=== PATIENT | male | born 1985 | race Caucasian/White ===

== ENCOUNTER 2016-11-16 19:21 | Emergency (ER) | payer SELFPAY ==
[2016-11-16] MEDS ORDERED: Sodium Chloride 0.9% 10 ML Syringe FLUSH PRN (19:32)
[2016-11-16] MEDS ORDERED: Sodium Chloride 0.9% 2.5 ML Syringe FLUSH PRN (19:32)
--- NOTE | 2016-11-16 19:32 | EDM.PDOC ---
ED HPI GENERAL MEDICAL PROBLEM - General Chief Complaint: Chest Pain Stated Complaint: PT HAS CHEST PAINS Time Seen by Provider: 11/16/16 19:26 - History of Present Illness INITIAL COMMENTS - FREE TEXT/NARRATIVE: HISTORY AND PHYSICAL: History of present illness: Patient 31-year-old white male presents with concern of left-sided chest pain is vaguely described without associated shortness breath palpitations nausea vomiting or diaphoresis he denies any cardiac risk factors and states he's been in good health. Review of systems: As per history of present illness and below otherwise all systems reviewed and negative. Past medical history: As per history of present illness and as reviewed below otherwise noncontributory. Surgical history: As per history of present illness and as reviewed below otherwise noncontributory. Social history: No reported history of drug or alcohol abuse. Family history: As per history of present illness and as reviewed below otherwise noncontributory. Physical exam: HEENT: Atraumatic, normocephalic, pupils reactive, negative for conjunctival pallor or scleral icterus, mucous membranes moist, throat clear, neck supple, nontender, trachea midline. Lungs: Clear to auscultation, breath sounds equal bilaterally, chest nontender. Heart: S1S2, regular, negative for clicks, rubs, or JVD. Abdomen: Soft, nondistended, nontender. Negative for masses or hepatosplenomegaly. Negative for costovertebral tenderness. Pelvis: Stable nontender. Genitourinary: Deferred. Rectal: Deferred. Extremities: Atraumatic, negative for cords or calf pain. Neurovascular unremarkable. Neuro: Awake, alert, oriented. Cranial nerves II through XII unremarkable. Cerebellum unremarkable. Motor and sensory unremarkable throughout. Exam nonfocal. Diagnostics: CBC CMP troponin PT/INR chest x-ray EKG Therapeutics: IV O2 monitor Impression: #1 atypical chest pain Definitive disposition and diagnosis as appropriate pending reevaluation and review of above. ED ROS GENERAL - Review of Systems Review Of Systems: ROS reveals no pertinent complaints other than HPI. ED EXAM, GENERAL - Physical Exam Exam: See Below (See dictation) Departure - Departure Time of Disposition: 19:32 Disposition: Home, Self-Care 01 Condition: Good Clinical Impression: Atypical chest pain - Discharge Information Additional Instructions: The following information is given to patients seen in the emergency department who are being discharged to home. This information is to outline your options for follow-up care. We provide all patients seen in our emergency department with a follow-up referral. The need for follow-up, as well as the timing and circumstances, are variable depending upon the specifics of your emergency department visit. If you don't have a primary care physician on staff, we will provide you with a referral. We always advise you to contact your personal physician following an emergency department visit to inform them of the circumstance of the visit and for follow-up with them and/or the need for any referrals to a consulting specialist. The emergency department will also refer you to a specialist when appropriate. This referral assures that you have the opportunity for followup care with a specialist. All of these measure are taken in an effort to provide you with optimal care, which includes your followup. Under all circumstances we always encourage you to contact your private physician who remains a resource for coordinating your care. When calling for followup care, please make the office aware that this follow-up is from your recent emergency room visit. If for any reason you are refused follow-up, please contact the [facility] emergency department at and asked to speak to the emergency department charge nurse. [facility] [address] [place] [id number] Follow-up primary medical doctor and/or clinic above as discussed return as needed as discussed
[2016-11-16 20:14] LABS: CHLORIDE,CL 106 mmol/L (98-110); SODIUM,NA 139 mmol/L (136-146)
[2016-11-16 20:58] VITALS: BP 136/72
--- NOTE | 2016-11-17 15:58 | CR ---
EXAM DATE: 11/16/16 PATIENT'S AGE: 31 Patient: GARY KNAPP Facility: [place], [place] Site . Site : 1985 Study: XRay Chest [id number]/10/2017 7:55:35 PM Ordering Physician: Doctor Walker Final Report: INDICATION: PAIN/SOB LOWER EXTREMITY SWELLING X 1 WEEK INDICATION: Pain. Shortness of breath. TECHNIQUE: Chest 1 view. COMPARISON: None FINDINGS: Cardiovascular and mediastinum: Heart size and vasculature are normal in caliber and appearance. Mediastinum is within normal limits. Lungs and pleural space: Lungs are clear. No sign of infiltrate or mass. No sign of pleural effusion. No pneumothorax. Bones and soft tissues: No significant findings. IMPRESSION: Lungs are clear. Dictated by Marcell Nuñez MD @ 11/16/2016 8:18:32 PM Dictated by: Marcell Nuñez MD @ 11/16/2016 20:18:39 (Electronic Signature) Report Signed by Proxy. KORY
== END 2016-11-16 20:58 | disposition home or self-care (01) ==
LOC: MW.ED 19:21
DX: R07.89 Other chest pain (principal)
CPT/HCPCS: 36415; 71010; 71010-26; 80053; 84484; 85025; 93005; 99282; 99285-25

== ENCOUNTER 2017-09-26 09:04 | Emergency (ER) | payer SELFPAY ==
[2017-09-26 09:19] VITALS: BP 156/92
--- NOTE | 2017-09-26 09:36 | EDM.PDOC ---
ED HPI GENERAL MEDICAL PROBLEM - General Chief Complaint: Skin Complaint Stated Complaint: bumps on back on his neck Time Seen by Provider: 09/26/17 09:13 Source of Information: Reports: Patient History Limitations: Reports: No Limitations - History of Present Illness INITIAL COMMENTS - FREE TEXT/NARRATIVE: History of present illness: []Patient was stung by a bee yesterday and last night had sweats and noted a lump at the back of his neck. Review of systems: As per history of present illness and below otherwise all systems reviewed and negative. Past medical history: As per history of present illness and as reviewed below otherwise noncontributory. Surgical history: As per history of present illness and as reviewed below otherwise noncontributory. Social history: No reported history of drug or alcohol abuse. Family history: As per history of present illness and as reviewed below otherwise noncontributory. Physical exam: General: Well developed, well nourished in NAD HEENT: Atraumatic, normocephalic, pupils reactive, negative for conjunctival pallor or scleral icterus, mucous membranes moist, throat clear, neck supple, nontender, 1 cm x 1 cm mobile nontender soft nodule posterior left neck, there is an insect bite that physical without signs of infection trachea midline. Lungs: Clear to auscultation, breath sounds equal bilaterally, chest nontender. Heart: S1S2, regular, negative for clicks, rubs, or JVD. Abdomen: Soft, nondistended, nontender. Negative for masses or hepatosplenomegaly. Negative for costovertebral tenderness. Pelvis: Stable nontender. Genitourinary: Deferred. Rectal: Deferred. Extremities: Atraumatic, negative for cords or calf pain. Neurovascular unremarkable. Neuro: Awake, alert, oriented. Cranial nerves II through XII unremarkable. Cerebellum unremarkable. Motor and sensory unremarkable throughout. Exam nonfocal. Diagnostics: [] Therapeutics: [] Impression: []Lymphadenopathy Plan: []Follow-up with primary care as needed return if any fevers, worsening pain or other concerning symptoms occur. Definitive disposition and diagnosis as appropriate pending reevaluation and review of above. Throat Pain Score (Numeric/FACES): 2 - Related Data Allergies Allergy/AdvReac Type Severity Reaction Status Date / Time No Known Allergies Allergy Verified 09/26/17 09:12 Home Meds: Home Meds . [No Known Home Meds] 11/16/16 [History] Past Medical History - Past Health History Medical/Surgical History: Denies Medical/Surgical History - Infectious Disease History Infectious Disease History: Reports: Chicken Pox Social & Family History - Family History Family Medical History: Noncontributory - Tobacco Use Smoking Status *Q: Never Smoker - Caffeine Use Caffeine Use: Reports: None - Recreational Drug Use Recreational Drug Use: No ED ROS GENERAL - Review of Systems Review Of Systems: ROS reveals no pertinent complaints other than HPI. ED EXAM, SKIN/RASH Exam: See Below (She history of present illness) Course - Vital Signs Last Recorded V/S: Last Vital Signs Temp 97.7 F 09/26/17 09:13 Pulse 93 09/26/17 09:13 Resp 16 09/26/17 09:13 BP 156/92 H 09/26/17 09:13 Pulse Ox 99 09/26/17 09:13 Departure - Departure Time of Disposition: 09:35 Disposition: Home, Self-Care 01 Condition: Good Clinical Impression: Lymphadenopathy - Discharge Information *PRESCRIPTION DRUG MONITORING PROGRAM REVIEWED*: Not Applicable Referrals: PCP,None [Primary Care Provider] - Additional Instructions: The following information is given to patients seen in the emergency department who are being discharged to home. This information is to outline your options for follow-up care. We provide all patients seen in our emergency department with a follow-up referral. The need for follow-up, as well as the timing and circumstances, are variable depending upon the specifics of your emergency department visit. If you don't have a primary care physician on staff, we will provide you with a referral. We always advise you to contact your personal physician following an emergency department visit to inform them of the circumstance of the visit and for follow-up with them and/or the need for any referrals to a consulting specialist. The emergency department will also refer you to a specialist when appropriate. This referral assures that you have the opportunity for follow-up care with a specialist. All of these measure are taken in an effort to provide you with optimal care, which includes your follow-up. Under all circumstances we always encourage you to contact your private physician who remains a resource for coordinating your care. When calling for follow-up care, please make the office aware that this follow-up is from your recent emergency room visit. If for any reason you are refused follow-up, please contact the Emergency Department at and asked to speak to the emergency department charge nurse. Primary Care [address] [place] [id number]
== END 2017-09-26 09:51 | disposition home or self-care (01) ==
LOC: MW.ED 09:04
DX: R59.1 Generalized enlarged lymph nodes (principal)
CPT/HCPCS: 99282